=== PATIENT | female | born 1960 | race African-American/Black ===

== ENCOUNTER 2020-07-18 08:54 | Emergency (ER) | payer OTHER ==
[~2020-07-18] VITALS: Ht 172.7 cm; Wt 61.2 kg
[~2020-07-18 08:54] MED LIST: ALEVE220 MG PO; FLEXERIL; FLEXERIL PO; IBUPROFEN 800800 M1 PO; KETOCONAZOLE15 GM TOP; NAPROSYN500 MG PO; NEXIUM40 MG PO; NORCO 5-325 TA1 EACH PO; PERCOCET 5-3251 EACH PO
[2020-07-18] MEDS ORDERED: LISINOPRIL10 MG PO (09:08)
[2020-07-18] MEDS ORDERED: LIPITOR 20 MG T20 M1 PO (09:08)
[2020-07-18] MEDS ORDERED: OMEPRAZOLE 20 M20 M1 PO (09:08)
[2020-07-18] MEDS ORDERED: AMITRIPTYLINE H25 M3 PO (09:08)
[2020-07-18] MEDS ORDERED: NAPROSYN500 MG PO (10:11)
[2020-07-18] MEDS ORDERED: VALIUM5 MG PO (10:11)
[2020-07-18 10:37] VITALS: BP 120/73
== END 2020-07-18 10:39 | disposition home or self-care (01) ==
LOC: M.ERS 08:54
DX: S46.812A Strain of other muscles, fascia and tendons at shoulder and upper arm level, left arm, initial encounter (principal); S29.012A Strain of muscle and tendon of back wall of thorax, initial encounter; I10 Essential (primary) hypertension; E78.00 Pure hypercholesterolemia, unspecified; F17.210 Nicotine dependence, cigarettes, uncomplicated; Z96.641 Presence of right artificial hip joint; Z98.890 Other specified postprocedural states; W10.8XXA Fall (on) (from) other stairs and steps, initial encounter; Y93.89 Activity, other specified; Y92.89 Other specified places as the place of occurrence of the external cause; Y99.8 Other external cause status